=== PATIENT | male | born 1955 | race Hispanic/Latino ===

== ENCOUNTER 2018-05-23 09:42 | Day surgery (SDC) | payer MEDICAID ==
[~2018-05-23] VITALS: Ht 162.6 cm; Wt 95.3 kg
[~2018-05-23 09:42] MED LIST: BISA10SU61 RC; LEVE250T PO; MV-M1TAB20 PO; OMEP-272 PO; PHEN100C23 PO; SODIUM CHLORIDE 0.9% 1000ML 1,000 ML IV ONE; [UNRECOGNIZED DRUG - CODE] PO
[2018-05-23 10:07] VITALS: BP 121/69
[2018-05-23] MEDS ORDERED: LEVE100S7 PO (10:27)
[2018-05-23] MEDS ORDERED: LEVE1000 PO ×2 (10:27)
[2018-05-23] MEDS ORDERED: MIDAZOLAM HCL 1 MG/ML 2ML VIAL ONE (11:58)
[2018-05-23 12:05] VITALS: BP 115/73
[2018-05-23 12:10] VITALS: BP 120/75
[2018-05-23 12:15] VITALS: BP 122/72
== END 2018-05-23 12:55 | disposition home or self-care (01) ==
LOC: DAH 09:42
PROVIDERS: ATTEND Internal Medicine Gastroenterology
DX: K29.50 Unspecified chronic gastritis without bleeding (principal); Z79.899 Other long term (current) drug therapy; Z90.49 Acquired absence of other specified parts of digestive tract; G40.909 Epilepsy, unspecified, not intractable, without status epilepticus
CPT/HCPCS: 43239; 88305; A4606; J2250; J7030; 99152